=== PATIENT | male | born 1945 | race Caucasian/White ===

== ENCOUNTER 2017-11-28 17:01 | Emergency (ER) | payer OTHER, MEDICAID ==
[~2017-11-28] VITALS: Ht 165.1 cm; Wt 68.0 kg
[2017-11-28 17:24] VITALS: Ht 165.1 cm; Wt 68.0 kg
[2017-11-28 21:55] VITALS: BP 171/75
== END 2017-11-28 21:55 | disposition home or self-care (01) ==
LOC: ED 17:01 → EDSEX 17:01 → ED 21:55
DX: K94.23 Gastrostomy malfunction (principal); E11.22 Type 2 diabetes mellitus with diabetic chronic kidney disease; I12.0 Hypertensive chronic kidney disease with stage 5 chronic kidney disease or end stage renal disease; N18.6 End stage renal disease; E78.5 Hyperlipidemia, unspecified; F03.90 Unspecified dementia, unspecified severity, without behavioral disturbance, psychotic disturbance, mood disturbance, and anxiety
CPT/HCPCS: Q0092; Q9967